=== PATIENT | female | born 1945 | race Caucasian/White ===

== ENCOUNTER 2018-10-16 11:33 | Inpatient (IN) | payer OTHER | END 2018-10-18 19:10 | disposition still patient (30) | LOC: ER 11:33 → TELE-WESTW 10-17 16:50 → TELE 23:00 | DX: I63.40 Cerebral infarction due to embolism of unspecified cerebral artery (principal); I21.4 Non-ST elevation (NSTEMI) myocardial infarction; I67.82 Cerebral ischemia; I10 Essential (primary) hypertension; R53.1 Weakness; R91.8 Other nonspecific abnormal finding of lung field ==

== ENCOUNTER 2018-11-15 01:46 | Emergency (ER) | payer OTHER ==
[~2018-11-15] VITALS: Ht 152.4 cm; Wt 68.0 kg
[~2018-11-15 01:46] MED LIST: ASPI81CH43 PO; CHOL20007 PO; HCTZ25T PO; LISI-646 PO; OXYB5TAB61 PO
[2018-11-15] MEDS ORDERED: MORPHINE SULFATE 4 MG/ML SYR/VIAL IV ONE (03:48)
[2018-11-15] MEDS ORDERED: ONDANSETRON HCL 4 MG/2 ML VIAL IV ONE ×2 (03:48→09:00)
[2018-11-15] MEDS ORDERED: HYDROmorphone HCL 2 MG/ML VL IV ONE ×2 (05:00→09:00)
[2018-11-15 07:58] LABS: Basophils # (auto) 0.1 uL; Basophils % (auto) 0.5 % (0.0-2.0); Eosinophils # (auto) 0 uL; Eosinophils % (auto) 0.1 % (0.0-7.0); Hemoglobin 11.1 g/dL (12.2-16.2); Mean Corpuscular Hemoglobin 25.1 pg (28.0-32.0)
[2018-11-15 08:00] LABS: Hematocrit 34.6 % (36.0-46.0); Lymphocytes % (auto) 7.5 % (10.0-50.0); Mean Corpuscular Volume 78.3 fL (80.0-100.0); Monocytes # (auto) 0.6 uL; Monocytes % (auto) 4.7 % (0.0-12.0); Neutrophils # (auto) 11.8 uL; Neutrophils % (auto) 87.2 % (37.0-80.0); Nucleated Red Blood Cells % 0.1 %; Platelet Count (auto) 342 10^3/uL (140-450); Red Blood Cells 4.42 10^6/uL (4.0-5.20); Red Cell Distribution Width 17.9 % (11.8-14.3); White Blood Cell 13.5 10^3/uL (4.4-10.8)
[2018-11-15 08:13] LABS: INR 0.98 (0.9-1.15); Partial Thromboplastin Time 29.2 sec (23.64-32.05); Prothrombin Time 10.6 sec (9.06-12.60)
[2018-11-15 08:19] LABS: Albumin 2.4 g/dL (3.4-5.0); Potassium 4.2 mmol/L (3.5-5.1)
[2018-11-15 08:24] LABS: BUN/Creatinine Ratio 20.2; Bilirubin, Total 0.3 mg/dL (0.2-1.0)
[2018-11-15 13:36] VITALS: BP 165/56
== END 2018-11-15 14:24 | disposition home or self-care (01) ==
LOC: ER 01:46 → EDBD 01:46 → ER 14:24
DX: S72.002A Fracture of unspecified part of neck of left femur, initial encounter for closed fracture (principal); R91.8 Other nonspecific abnormal finding of lung field; Z88.0 Allergy status to penicillin; Z86.73 Personal history of transient ischemic attack (TIA), and cerebral infarction without residual deficits; W19.XXXA Unspecified fall, initial encounter; Y93.89 Activity, other specified; Y99.8 Other external cause status; Y92.89 Other specified places as the place of occurrence of the external cause
CPT/HCPCS: 36415; 71045; 72192; 80053; 85025; 85610; 85730; 93005; 94761; 96374; 96375; 96376; 99284; J1170; J2270; J2405